=== PATIENT | female | born 1975 | race Asian ===

== ENCOUNTER → 2024-04-15 | Outpatient (CLI) | payer BC ==
[2024-04-15 09:54] LABS: BASOPHILS % 0.9 % (0.0-2.0); EOSINOPHILS % 13.4 % (0.0-5.0); HEMATOCRIT. 41.1 % (36.0-48.0); HEMOGLOBIN. 13.6 g/dL (12.0-16.0); LYMPHOCYTES % 41.3 % (20.0-50.0); MEAN CORPUSCULAR HEMOGLOBIN 31.3 pg (28.0-32.0); MEAN CORPUSCULAR HGB CONC 33.2 g/dL (31.0-37.0); MEAN CORPUSCULAR VOLUME 94.4 fL (81.0-99.0); MEAN PLATELET VOLUME 7.7 fl (7.4-10.4); MONOCYTES % 5.3 % (2.0-8.0); NEUTROPHILS % 39.1 % (40.0-76.0); PLATELET 248 x1000/uL (130-400); RED BLOOD CELL COUNT 4.35 mill/uL (4.2-5.4); RED CELL DISTRIBUTION WIDTH 12.4 % (11.6-14.6)
[2024-04-15 09:56] LABS: CARBON DIOXIDE 29 mEq/L (21-32); CHLORIDE 107 mEq/L (98-107); POTASSIUM 4.3 mEq/L (3.5-5.1); SODIUM 139 mEq/L (136-145)
[2024-04-15 09:57] LABS: CALCIUM 9.5 mg/dL (8.7-10.4)
[2024-04-15 10:01] LABS: CREATININE 0.7 mg/dL (0.6-1.0); GLUCOSE 114 mg/dL (70-105)
[2024-04-15 10:02] LABS: LDL CHOLESTEROL 143 mg/dL (5-100); TRIGLYCERIDE 105 mg/dL (0-150); UREA NITROGEN BLOOD 14 mg/dL (9-23)
[2024-04-15 10:03] LABS: ALANINE AMINOTRANSFERASE 72 IU/L (10-49); ALBUMIN 4.5 g/dL (3.2-4.8); ASPARTATE AMINOTRANSFERASE 39 IU/L (<34)
[2024-04-15 10:04] LABS: BILIRUBIN TOTAL 0.6 mg/dL (0.1-1.0); CHOLESTEROL 212 mg/dL (<200); HDL CHOLESTEROL 54 mg/dL (>65); PROTEIN TOTAL 7.4 g/dL (6.0-8.3)
[2024-04-15 10:06] LABS: T4 FREE 1.06 ng/dL (0.89-1.76); THYROID STIMULATING HORMONE 1.79 uIU/mL (0.55-4.78)
== END | disposition home or self-care (01) ==
LOC: LAB 09:10
PROVIDERS: ATTEND Internal Medicine
DX: Z13.220 Encounter for screening for lipoid disorders (principal); Z13.1 Encounter for screening for diabetes mellitus; Z00.00 Encounter for general adult medical examination without abnormal findings; Z13.0 Encounter for screening for diseases of the blood and blood-forming organs and certain disorders involving the immune mechanism; Z13.29 Encounter for screening for other suspected endocrine disorder; I10 Essential (primary) hypertension
CPT/HCPCS: 36415; 80053; 80061; 83036; 84439; 84443; 85025